=== PATIENT | female | born 1985 | race Caucasian/White ===

== ENCOUNTER 2019-01-02 20:27 | Emergency (ER) | payer MEDICAID ==
[2019-01-03] MEDS: KETOROLAC 30 MG INJ IM (01:08)
== END 2019-01-03 04:22 | disposition home or self-care (01) ==
LOC: FTE 20:27
DX: S80.02XA Contusion of left knee, initial encounter (principal); W01.0XXA Fall on same level from slipping, tripping and stumbling without subsequent striking against object, initial encounter; Y92.9 Unspecified place or not applicable
CPT/HCPCS: 73562; 81025; 96372; 99284-25